=== PATIENT | female | born 2000 | race African-American/Black ===

== ENCOUNTER 2024-06-01 23:09 | Emergency (ER) | payer OTHER, SELFPAY ==
--- NOTE | ~2024-06-01 | XR_ITS ---
AP view of the pelvis and AP and lateral views of the left hip Clinical history: Pain Findings: No acute fracture or dislocation is seen. Osseous alignment is anatomic. Bilateral hip and SI joint spaces are preserved. Soft tissues are unremarkable. Impression: No significant abnormality is seen. Reviewed, dictated and finalized at location . Impression: No significant abnormality is seen.
--- NOTE | ~2024-06-01 | XR_ITS ---
Left Knee Technique: AP, lateral, and oblique views were obtained. Clinical History: Pain Findings: No fracture or dislocation is seen. Osseous alignment is anatomic. Joint spaces are preserv ed without degenerative or erosive change. Soft tissues are unremarkable. No joint effusion is seen. Impression: Unremarkable left knee radiographs. Reviewed, dictated and finalized at location . Impression: Unremarkable left knee radiographs.
[2024-06-01 23:36] VITALS: BP 135/68; PULSE 66; RESP 16; TEMP 36.3; O2SAT 100
[2024-06-02 01:16] LABS: BEDSIDEPREGUCG Negative
--- NOTE | 2024-06-02 01:34 | ED.EXTPRO ---
HPI - Extremity Problem General Chief complaint: Extremity Problem,Nontraumatic Stated complaint: L hip spasms Time Seen by Provider: 06/02/24 00:47 History of Present Illness HPI Narrative: 23-year-old female presenting to the emergency department for evaluation for intermittent spasm of her left hip. Patient states sometimes when she is ambulating she has left hip spasm. Patient denies any falls or injuries. Patient denies any current left hip pain. Patient also reported some intermittent abdominal pain. Related Data Allergies Allergy/AdvReac Type Severity Reaction Status Date / Time No Known Allergies Allergy Verified 06/01/24 23:10 Review of Systems Review of Systems: All systems reviewed & are unremarkable except as noted in HPI and below Exam Narrative: APPEARANCE: Well appearing, no pain, no distress, well-nourished. HEAD: normocephalic, atraumatic. EYES: PERRLA/EOMI, conjunctivae clear. NOSE: Normal no drainage EARS:TMS clear with good light reflex. THROAT: Pharynx clear, no exudate. NECK: Supple. No adenopathy, no masses. RESPIRATORY: Airway patent, respirations nonlabored. Clear to auscultation bilaterally, no rales, rhonchi, wheezing. CARDIOVASCULAR: Regular rate and rhythm without murmurs rubs or gallops. ABDOMINAL: Soft, nontender, nondistended, normal bowel sounds MUSCULOSKELETAL: Moves all extremities. Strength/ROM intact, No edema, No calf tenderness. NEURO: Alert. Cranial nerves II through XII intact. Good gait. Good coordination SKIN: Warm, dry. Normal Color Course Course Emergency Course: Patient was treated for urinary tract infection discharged home with Zofran. Vital Signs Vital signs: Vital Signs Temperature 97.3 F L 06/01/24 23:36 Pulse Rate 66 06/01/24 23:36 Respiratory Rate 16 06/01/24 23:36 Blood Pressure 135/68 06/01/24 23:36 Pulse Oximetry 100 06/01/24 23:36 Oxygen Delivery Room Air 06/01/24 23:36 Temperature 97.8 F 06/02/24 02:46 Pulse Rate 67 06/02/24 02:46 Respiratory Rate 18 06/02/24 02:46 Blood Pressure 117/82 06/02/24 02:46 Pulse Oximetry 99 06/02/24 02:46 Oxygen Delivery Room Air 06/01/24 23:36 MDM - Extremity (Nontraumatic) MDM Narrative Medical decision making narrative: 23-year-old female present to the emergency department for evaluation for left hip pain. X-rays were negative for acute fracture dislocation. UA was concerning for urinary tract infection and patient was treated with Rocephin and discharged home with Keflex and Zofran. Patient was updated the results of the workup patient was comfortable with plan for discharge and close follow-up. Differential Diagnosis Differential diagnosis: Likely other (Hip strain, knee strain, UTI, ureteral calculi) Lab Data Labs: Lab Results 06/02/24 06/02/24 Range/Units 01:13 01:14 Urine Color Dark yellow (Yellow) Urine Appearance Cloudy H (Clear) Urine pH 5.5 (5.0-9.0) Ur Specific [place] 1.039 H (1.001-1.035) Urine Protein 1+ H (Negative) mg/dL Urine Glucose (UA) Negative (Negative) mg/dL Urine Ketones Trace H (Negative) mg/dL Ur Blood (Man) 3+ H (Negative) Urine Nitrate Positive H (Negative) Urine Bilirubin Negative (Negative) Urine Urobilinogen 1.0 (<2.0) mg/dL Add Ur Microanalysis Reviewed Leukocyte Esterase Rfl 1+ H (Negative) LOUIS/UL Urine RBC >100 H (0-2) /hpf Urine WBC >100 H (0-3) /hpf Ur Squamous Epith Cells Moderate (Few) /hpf Calcium Oxalate Crystal Present (None) /hpf Urine Bacteria 4+ H /hpf Urine Casts 0-2 Urine Yeast (Budding) Present H (None) /hpf POC Urine HCG, Qual Negative Imaging Data My impression: X-ray left knee: No acute fracture dislocation X-ray left hip: No acute fracture or dislocation Discharge Plan Discharge Clinical Impression: UTI (urinary tract infection) Patient Disposition: Home, Self-Care Condition: Stable Instru
[2024-06-02 02:15] LABS: Add Urine Microscopic? YES; Appearance Urine Cloudy (Clear); Bacteria Urine 4+ /hpf; Bilirubin Urine Negative (Negative); Blood Urine 3+ (Negative); Budding Yeast Urine Present /hpf; Calcium Oxalate Crystals Urine Present /hpf; Color Urine Dark Yellow (Yellow); Glucose Urine UA Negative (Negative); Ketones Urine Trace mg/dL (Negative); Leukocyte Esterase Ur 1+ LEU/UL (Negative); Need Manual Microscopic Reviewed; Nitrate Urine Positive (Negative); Non Pathogenic Casts 0-2; Protein Urine 1+ mg/dL (Negative); RBC Urine >100 /hpf (0-2); Specific Grav Ur 1.039 (1.001-1.035); Squamous Epithelial Cell Urine Moderate /hpf (Few); WBC Urine >100 /hpf (0-3); pH Urine 5.5 (5.0-9.0)
[2024-06-02] MEDS: CEPHALEXIN 500 MG CAPSULE PO (02:44)
[2024-06-02] MEDS: ONDANSETRON HCL ODT 4 MG TABLET PO (02:45)
[2024-06-02 02:46] VITALS: BP 117/82; PULSE 67; RESP 18; TEMP 36.6; O2SAT 99
== END 2024-06-02 02:47 | disposition home or self-care (01) ==
PROVIDERS: Emergency Provider Emergency Medicine; PCP Pediatrics Adolescent Medicine
DX: N39.0 Urinary tract infection, site not specified (principal)
CPT/HCPCS: 73502; 73562; 81001; 81025; 87077; 87086; 87088; 87186; 99284; A9270